=== PATIENT | male | born 1990 | race American Indian/Alaskan Native ===

== ENCOUNTER 2019-12-14 23:56 | Emergency (ER) | payer SELFPAY ==
[2019-12-15] MEDS ORDERED: HYDROGEN PEROXIDE 118 ML SOLUTION TP ONE (01:12)
[2019-12-15] MEDS ORDERED: HYDROGEN PEROXIDE 118 ML SOLUTION ONE (01:14)
[2019-12-15] MEDS ORDERED: LIDOCAINE (1%) 10 MG/1 ML VIAL 20 ML MDV INFILTRATI ONE (01:39)
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
[2019-12-15] MEDS ORDERED: HYDROcodone/ACETAMINOPHEN 5-325 MG TAB PO ONE (02:31)
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
[2019-12-15 05:47] VITALS: BP 131/65
== END 2019-12-15 05:50 | disposition home or self-care (01) ==
LOC: ED 23:56
DX: S01.81XA Laceration without foreign body of other part of head, initial encounter (principal); S01.21XA Laceration without foreign body of nose, initial encounter; Y04.2XXA Assault by strike against or bumped into by another person, initial encounter; Y93.89 Activity, other specified; Y92.89 Other specified places as the place of occurrence of the external cause; Y99.8 Other external cause status
CPT/HCPCS: 70450; 70486